=== PATIENT | female | born 1935 | race Caucasian/White ===

== ENCOUNTER 2020-06-05 15:10 | Emergency (ER) | payer OTHER ==
[~2020-06-05] VITALS: Ht 167.6 cm; Wt 68.0 kg
[2020-06-05 15:15] VITALS: BP_SYST 146
--- NOTE | 2020-06-05 15:20 | NUR ---
Patient triaged and placed in waiting room. VSS and patient appears in no acute distress at this time. Accompanied by , awaiting available bed, and MD notified of need for MSE.
--- NOTE | 2020-06-05 15:37 | NUR ---
PLACED IN BED 3
--- NOTE | 2020-06-05 15:45 | NUR ---
Patient presented to ER C/O abdominal pain. Patient BIB , ambulatory to ER A&Ox4, afebrile, skin pink & warm, respirations equal bilat, no distress noted at this time, denies pain, denies N/V/D. Patient reports she has intermittent abdominal pain; no pain at this time. Patient states she was brought to ER by miguel and pawan prior to arriving to ER.
--- NOTE | 2020-06-05 16:32 | NUR ---
Returned from radiology, back to [facility].
--- NOTE | 2020-06-05 17:00 | NUR ---
PLACED IN HALLWAY FOR DISPOSITION
--- NOTE | 2020-06-05 17:22 | NUR ---
DR. DEL ROSARIO RE-EVALUATING PT
--- NOTE | 2020-06-05 17:33 | NUR ---
Patient given written and verbal discharge instructions and verbalizes understanding. ER MD discussed with patient the results and treatment provided. Patient in stable condition. ID arm band removed. Rx of TRAMADOL, MINERAL OIL, MIRALAX given. Patient educated on pain management and to follow up with PMD. Pain Scale 0/10. Opportunity for questions provided and answered. Medication side effect fact sheet provided.
[2020-06-05 17:35] VITALS: BP_SYST 146
== END 2020-06-05 17:34 | disposition home or self-care (01) ==
LOC: SED 15:10
DX: N20.0 Calculus of kidney (principal); R10.9 Unspecified abdominal pain
CPT/HCPCS: 76376; 93005; 99284